=== PATIENT | female | born 1950 | race Caucasian/White ===

== ENCOUNTER 2021-11-06 12:05 | Observation (INO) | payer MEDICARE, OTHER ==
[2021-11-06] VITALS (7 sets, daily range): BP systolic 138–162; BP diastolic 65–73
[~2021-11-06] VITALS: Ht 162.6 cm; Wt 79.0 kg
[2021-11-06 12:45] LABS: HEMATOCRIT 35.4 % (37.0-47.0); HEMOGLOBIN 11.4 g/dl (12.0-16.0); IMMATURE GRANULOCYTES 0.3 % (0.0-5.0); MEAN CELL VOLUME 90.1 fL CALC (80.0-100.0); MEAN CORPUSCULAR HGB CONC 32.2 g/dL CAL (32.0-36.0); NEUT# 3.5 thou/uL (2.00-7.15); RED BLOOD COUNT 3.93 mill/uL (4.20-5.60); RED CELL DISTRI WIDTH 13.4 % (11.5-15.5)
[2021-11-06 12:58] LABS: ACT PARTIAL THROMBO TIME 20.7 SECONDS (20.0-32.5); ALBUMIN 3.8 g/dL (3.2-5.0); ALKALINE PHOSPHATASE 94 u/l (38-126); ANION GAP 10 (6-22 (CALC)); BILIRUBIN, TOTAL 0.6 mg/dL (0.0-1.4); BUN 17 mg/dL (8-23); BUN/CREATININE RATIO 22 (12-20 (CALC)); CARBON DIOXIDE 27 mmol/l (22-30); CHLORIDE 105 mmol/l (95-108); CREATININE 0.8 mg/dL (0.5-1.0); ETHYL ALCOHOL 0 mg/dl (0-30); GFR > 60 ML/MIN (>=60 (CALC)); GFR FOR AFR.AMER. > 60 ML/MIN (>=60 (CALC)); INTERNATIONAL NORMALIZED RATIO 1.1 RATIO (0.7-1.3); LIPASE 65 u/l (23-300); POTASSIUM 3.4 mmol/l (3.5-5.1); SGOT/AST 38 u/l (9-36); SODIUM 139 mmol/l (137-146); TOTAL PROTEIN 6.8 g/dL (6.3-8.2)
[2021-11-06 14:58] LABS: URINE BILIRUBIN - DIPSTICK NEGATIVE (NEGATIVE); URINE BLOOD DIPSTICK NEGATIVE (NEGATIVE); URINE COLOR YELLOW; URINE GLUCOSE - DIPSTICK NEGATIVE (NEGATIVE); URINE KETONE NEGATIVE (NEGATIVE); URINE LEUK ESTERASE NEGATIVE (NEGATIVE); URINE PROTEIN - DIPSTICK NEGATIVE (NEG-TRACE); URINE SPECIFIC GRAVITY <=1.005; URINE UROBILINOGEN - DIPSTICK 0.2 E.U./dL (0.2)
[2021-11-06 15:01] LABS: URINE NITRITE - DIPSTICK NEGATIVE (Negative)
[2021-11-06] MEDS ORDERED: LISINOPRIL10 MG PO (16:35)
[2021-11-06] MEDS ORDERED: HYDROCHLOROT25 MG PO (16:35)
[2021-11-06] MEDS ORDERED: WELCHOL625 MG PO (16:36)
[2021-11-06] MEDS ORDERED: PRAVASTATIN20 MG PO (16:36)
[2021-11-06] MEDS ORDERED: OMEPRAZOLE10 MG PO (16:37)
[2021-11-06] MEDS ORDERED: KLOR-CON M2020 MEQ PO (16:38)
[2021-11-06] MEDS ORDERED: CITALOPRAM10 M1 PO (16:38)
[2021-11-06] MEDS ORDERED: FLUTICASONE PRO IN (16:40)
[2021-11-06] MEDS ORDERED: METRONIDAZOLE0.75 % EX (16:41)
[2021-11-06] MEDS ORDERED: RETIN-A0.05 % EX (16:42)
[2021-11-06] MEDS ORDERED: [UNRECOGNIZED DRUG - OTHER] TOP (16:43)
[2021-11-06] MEDS ORDERED: ZYRTEC10 MG PO (16:43)
[2021-11-06] MEDS ORDERED: [UNRECOGNIZED DRUG - OTHER] TOP (16:44)
[2021-11-06] MEDS ORDERED: CENTRUM SILVER1 TA1 PO (16:46)
[2021-11-06] MEDS ORDERED: BIOTIN1000 MCG PO (16:46)
[2021-11-06] MEDS ORDERED: D3250 MCG PO (16:47)
[2021-11-06] MEDS ORDERED: ZINC50 MG PO (16:48)
[2021-11-06] MEDS ORDERED: LEVOTHYROXIN100 MCG PO (22:35)
[2021-11-07] VITALS: BP 105/56
[2021-11-07 04:00] VITALS: BP 117/59
[2021-11-07 05:47] VITALS: BP 111/57
[2021-11-07 05:47] LABS: HEMATOCRIT 33.4 % (37.0-47.0); HEMOGLOBIN 10.7 g/dl (12.0-16.0); MEAN CELL VOLUME 91.3 fL CALC (80.0-100.0); MEAN CORPUSCULAR HGB 29.2 pG CALC (26.0-32.0); RED BLOOD COUNT 3.66 mill/uL (4.20-5.60); RED CELL DISTRI WIDTH 13.5 % (11.5-15.5)
[2021-11-07 05:48] VITALS: BP 131/63; BP 140/68
[2021-11-07 05:48] LABS: ANION GAP 7 (6-22 (CALC)); BUN 15 mg/dL (8-23); BUN/CREATININE RATIO 21 (12-20 (CALC)); CARBON DIOXIDE 28 mmol/l (22-30); CHLORIDE 108 mmol/l (95-108); CREATININE 0.7 mg/dL (0.5-1.0); GFR > 60 ML/MIN (>=60 (CALC)); GFR FOR AFR.AMER. > 60 ML/MIN (>=60 (CALC)); MAGNESIUM 1.4 mg/dL (1.6-2.3); POTASSIUM 3.8 mmol/l (3.5-5.1); SODIUM 139 mmol/l (137-146)
[2021-11-07 07:00] VITALS: BP 11/49
[2021-11-07 11:21] VITALS: BP 123/66
== END 2021-11-07 13:35 | disposition home or self-care (01) ==
LOC: ED 12:05 → MS2 15:33
PROVIDERS: ADMIT Hospitalist; ATTEND Hospitalist
DX: R00.1 Bradycardia, unspecified (principal); I95.9 Hypotension, unspecified; I10 Essential (primary) hypertension; E11.9 Type 2 diabetes mellitus without complications; E78.5 Hyperlipidemia, unspecified; E03.9 Hypothyroidism, unspecified; K21.9 Gastro-esophageal reflux disease without esophagitis; Z20.822 Contact with and (suspected) exposure to COVID-19
CPT/HCPCS: J1650; J3475; Q9967

== ENCOUNTER 2021-12-27 04:35 | Observation (INO) | payer MEDICARE, OTHER ==
[~2021-12-27] VITALS: Ht 162.6 cm; Wt 100.0 kg
[2021-12-27] VITALS (8 sets, daily range): BP systolic 104–147; BP diastolic 50–75
[~2021-12-27 04:35] MED LIST: BIOTIN1000 MCG PO; CENTRUM SILVER1 TA1 PO; CITALOPRAM10 M1 PO; D3250 MCG PO; FLUTICASONE PRO IN; HYDROCHLOROT25 MG PO; KLOR-CON M2020 MEQ PO; LEVOTHYROXIN100 MCG PO; LISINOPRIL10 MG PO; METRONIDAZOLE0.75 % EX; OMEPRAZOLE10 MG PO; PRAVASTATIN80 MG PO; RETIN-A0.05 % EX; WELCHOL625 MG PO; ZINC50 MG PO; ZYRTEC10 MG PO; [UNRECOGNIZED DRUG - OTHER] TOP; [UNRECOGNIZED DRUG - OTHER] TOP
--- NOTE | 2021-12-27 04:35 | NUR ---
PT TO ROOM 10 VIA EMS
--- NOTE | 2021-12-27 05:06 | NUR ---
PT UP TO [facility].
[2021-12-27 05:32] LABS: URINE BILIRUBIN - DIPSTICK NEGATIVE (NEGATIVE); URINE BLOOD DIPSTICK MODERATE (NEGATIVE); URINE COLOR YELLOW; URINE GLUCOSE - DIPSTICK NEGATIVE (NEGATIVE); URINE KETONE NEGATIVE (NEGATIVE); URINE PH 5.5 (4.5-8.0); URINE PROTEIN - DIPSTICK TRACE mg/dL (NEG-TRACE); URINE SPECIFIC GRAVITY >=1.030; URINE UROBILINOGEN - DIPSTICK 0.2 E.U./dL (0.2)
[2021-12-27 05:33] LABS: IMMATURE GRANULOCYTES 0.1 % (0.0-5.0); MEAN CELL VOLUME 89.8 fL CALC (80.0-100.0); MEAN CORPUSCULAR HGB 28.7 pG CALC (26.0-32.0); NEUT# 12.38 thou/uL (2.00-7.15); RED BLOOD COUNT 4.6 mill/uL (4.20-5.60); RED CELL DISTRI WIDTH 12.9 % (11.5-15.5)
[2021-12-27 05:37] LABS: HEMATOCRIT 41.3 % (37.0-47.0); HEMOGLOBIN 13.2 g/dl (12.0-16.0)
[2021-12-27 05:39] LABS: URINE BACTERIA MANY hpf; URINE LEUK ESTERASE SMALL (NEGATIVE); URINE NITRITE - DIPSTICK NEGATIVE (Negative); URINE SQUAMOUS EPITHELIAL CELL MANY EPI/hpf (0-FEW)
[2021-12-27 05:48] LABS: ALKALINE PHOSPHATASE 128 u/l (38-126); ANION GAP 13 (6-22 (CALC)); BILIRUBIN, TOTAL 0.5 mg/dL (0.0-1.4); BUN 20 mg/dL (8-23); BUN/CREATININE RATIO 29 (12-20 (CALC)); CARBON DIOXIDE 25 mmol/l (22-30); CHLORIDE 104 mmol/l (95-108); CREATININE 0.7 mg/dL (0.5-1.0); GFR > 60 ML/MIN (>=60 (CALC)); GFR FOR AFR.AMER. > 60 ML/MIN (>=60 (CALC)); LIPASE 75 u/l (23-300); POTASSIUM 3.5 mmol/l (3.5-5.1); SGOT/AST 31 u/l (9-36); SODIUM 139 mmol/l (137-146); TOTAL PROTEIN 7.8 g/dL (6.3-8.2)
[2021-12-27 05:50] LABS: ALBUMIN 4.6 g/dL (3.2-5.0)
[2021-12-27 06:00] LABS: ACT PARTIAL THROMBO TIME 23.5 SECONDS (20.0-32.5)
--- NOTE | 2021-12-27 06:00 | NUR ---
Reassessment of patient completed. No distress noted. SUPPORT PERSON AT BS.
--- NOTE | 2021-12-27 07:23 | NUR ---
RECEIVED BEDSIDE REPORT FROM PJ BARBOSA
--- NOTE | 2021-12-27 08:30 | NUR ---
PT AMBULATED TO BATHROOM WITH STEADY GAIT
[2021-12-27] MEDS ORDERED: DIOVAN160 MG PO (08:48)
--- NOTE | 2021-12-27 09:02 | NUR ---
REPORT CALLED TO AUBREY BARBOSA
--- NOTE | 2021-12-27 09:25 | NUR ---
TO MED SURG VIA WHEELCHAIR
--- NOTE | 2021-12-27 09:30 | NUR ---
ADMITTD TO ROOM 2ND FLOOR FROM ED IN STABLE CONDITION, ALERT AND ORIENTED X4. RESPIRATIONS EVEN AND UNLABORED. BS HYPERACTIVE C/O NAUSEA ND PAIN THIS AM EARLY BUT NONE AT THIS TIME. BED LOW AND LOCKED CALL [place] IN REACH SIDE RAILS UP X2
[2021-12-27] MEDS ORDERED: POT CHLORIDE10 ME5 PO (09:48)
[2021-12-27] MEDS ORDERED: SYNTHROID25 MCG PO (11:03)
[2021-12-27] MEDS ORDERED: METHOCARBAMOL500 MG PO (11:08)
[2021-12-27] MEDS ORDERED: PREMARIN0.625 MG/G VA (11:09)
[2021-12-27] MEDS ORDERED: BALMEX11.3 % EX (11:10)
[2021-12-27 12:17] LABS: C. DIFFICILE TOXIN A&B NEGATIVE (NEGATIVE)
--- NOTE | 2021-12-27 12:36 | NUR ---
NO C/O ABDOMINAL PAIN OR NAUSEA AT THIS TIME. ABLE TO TOLERATE SMALL AMOUNTS OF LIQUID LUNCH, HAS HAD ONE LIQUID BM SINCE ADMISSION.
[2021-12-27] MEDS ORDERED: ZOFRAN4 MG/TAB PO (12:46)
[2021-12-27] MEDS ORDERED: (None)250 MG PO (12:46)
--- NOTE | 2021-12-27 13:36 | NUR ---
PT RESTING IN BED AT THIS TIME. STATES NO PAIN. IV PATENT. FALL/SAFETY PRECAUTION IN PLACE. CALL LIGHT WITHIN REACH.
--- NOTE | 2021-12-27 14:51 | NUR ---
Patient is screened for intervention and no needs are identified at this time
--- NOTE | 2021-12-27 15:38 | NUR ---
Discharge instructions given. Patient verbalizes understanding of same. Discharged in stable condition via Wheelchair to Home with staff. All belongings sent with pt.
== END 2021-12-27 15:35 | disposition home or self-care (01) ==
LOC: ED 04:35 → ED-I 05:31 → ED 05:31 → ED-I 06:46 → ED 07:01 → MS2 07:02
PROVIDERS: Nurse Practitioner; ADMIT Hospitalist; ATTEND Hospitalist
DX: A04.72 Enterocolitis due to Clostridium difficile, not specified as recurrent (principal); N39.0 Urinary tract infection, site not specified; I10 Essential (primary) hypertension; E11.9 Type 2 diabetes mellitus without complications; E78.5 Hyperlipidemia, unspecified; E03.9 Hypothyroidism, unspecified; K21.9 Gastro-esophageal reflux disease without esophagitis; R31.9 Hematuria, unspecified; B96.1 Klebsiella pneumoniae [K. pneumoniae] as the cause of diseases classified elsewhere; Z20.822 Contact with and (suspected) exposure to COVID-19
CPT/HCPCS: G0378; Q9967